=== PATIENT | female | born 1990 | race Caucasian/White ===

== ENCOUNTER 2024-03-24 17:36 | Emergency (ER) | payer SELFPAY ==
[2024-03-24 17:42] VITALS: BP 109/82; BMI 17.6
[2024-03-24] MEDS: DECADRON 10 MG IV (18:16)
[2024-03-24] MEDS: NSS 1000 IV (18:16)
[2024-03-24 18:42] VITALS: BP 108/91
--- NOTE | 2024-03-24 21:32 | ED.GENMED ---
History of Present Illness
General
Chief Complaint: Allergic Reaction
Source: patient
Exam Limitations: none
Time Seen by Provider: 03/24/24 17:49
Nursing documentation reviewed up to this point in time: agreed with
History of Present Illness
History of Present Illness:
Patient to ED for eval after bee sting. She states she was stung 3 times by same bee. 2 stings to left hip and 1 sting to left 4th finger. States she began to feel tight in her throat. Transported to ED via EMS. SHe was given a dose of benadryl
in route. 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
Past History
Past History
ED Past Medical History: None
ED Past Surgical History: None
Review of Systems
Review of Systems
Allergies reviewed?: Yes
All Other Systems: ROS reviewed and negative except as documented in HPI and ROS
Constitutional: Reports no symptoms
Musculoskeletal: Reports no symptoms
Skin: Reports no symptoms (2 bee stings to left hip, 1 sting to left palmar 4th finger)
Neurological: Reports no symptoms
Psychiatric: Reports no symptoms
Phy Exam
General Physical Exam
General Presentation: well appearing and no apparent distress
General age: appears stated age
General Skin: warm and dry
General Habitus: normal
ENT Exam
ENT Exam: EOMI, pharynx normal, neck supple, normocephalic and swallowing well
Cardiovascular Exam
Cardiovascular Exam: regular rate/rhythm and no edema
Pulmonary Exam
Pulmonary Exam: lungs clear and no respiratory distress
Musculoskeletal Exam
Musculoskeletal Exam: full ROM and neuro vasc intact
Skin Exam
Skin Exam: normal color
Psychiatric Exam
Psychiatric Exam: normal mood/affect
Course
Orders/Labs/Results
Orders:
Orders
03/24/24 17:54
0.9% Sodium Chloride 1000 ml [Nss] 1,000 ml IV BOLUS
Dexamethasone Sod Phosphate [Decadron] 10 mg IV NOW STA
Vital Signs
Initial and Last Documented VS:
Initial Vital Signs
Temp Pulse Resp BP Pulse Ox
98.3 F 100 18 109/82 100
03/24/24 17:42 03/24/24 17:42 03/24/24 17:42 03/24/24 17:42 03/24/24 17:42
Last Documented Vital Signs
Temp Pulse Resp BP Pulse Ox
98.3 F 68 18 108/91 100
03/24/24 17:42 03/24/24 18:42 03/24/24 18:42 03/24/24 18:42 03/24/24 18:42
*Critical Care Note
Total Time (30-74mins, 75-104mins- exclusive of procedures): Not Applicable
Update Note
Update Note:
Patient feeling improved after IVF, decadron, benadryl. VSS. LCTA. PUlse ox 99% RA. She is discharged home and will followup with PCP. Given instructions on s/s to return to ED and she is agreeable to plan.
ED Attending Note
-
Portions of this chart may have been created with voice recognition software.� Occasional wrong word or��sound alike� substitutions may have occurred due to the inherent limitations of voice recognition software.
Discharge Plan
Departure
Patient Disposition: Home (Routine Discharge)
Date of Disposition: 03/24/24
Time of Disposition: 19:39
Patient with high blood pressure during this ER visit?: No
Condition: Good
Covid-19: Not Applicable
Discharge Problem:
Allergic reaction to bee sting
Instructions: Allergic Reaction ED
Prescriptions:
New
epinephrine [EpiPen] 0.3 mg/0.3 mL auto-injector
0.3 mg IM .STAT PRN (Reason: anaphylaxis) Qty: 1 0RF
Referrals:
Laura Man MD [Family Provider] - Tomorrow
Activity Restrictions/Additional Instructions:
Return to the emergency department immediately for any difficulty breathing or swallowing.
Interventions
Interventions:
*Risk Screen - Suicide Last Done: 03/24/24 17:57
*General Assessment Last Done: 03/24/24 17:55
*Neglect/Abuse Screening Last Done: 03/24/24 17:57
*ED COVID-19 Vaccine History Last Done: 03/24/24 20:43
*Nursing Disposition Last Done: 03/24/24 20:43
ED- Cardiac Assessment Last Done: 03/24/24 18:43
ED- Pulmonary Assessment Last Done: 03/24/24 18:43
ED-Skin Assessment Last Done: 03/24/24 18:43
Discharge Date and Time
Discharge Date/Time: 03/24/24 20:44
Print Language: ROMANSH
Skin Exam
Bee Sting
Left Hip:
Pt has: multiple bites/stings (2 stings left hip)
Surrounding area around sting/bite has: no evidence of erythema
Left Palmar Fourth Finger:
Pt has: single bite/sting
Surrounding area around sting/bite has: no evidence of erythema
== END 2024-03-24 20:44 | disposition home or self-care (01) ==
LOC: EMR 17:36
PROVIDERS: EMERGENCY PHYSICIAN Emergency Medicine; FAMILY PHYSICIAN Internal Medicine
DX: T63.441A Toxic effect of venom of bees, accidental (unintentional), initial encounter (principal)
CPT/HCPCS: 99284; 96374; 96361